=== PATIENT | male | born 1960 | race Caucasian/White ===

== ENCOUNTER → 2017-06-12 | Outpatient (CLI) | payer BC ==
--- NOTE | 2017-06-12 14:07 | RAD ---
MR of the left knee Indication: Chronic knee pain. Pain mostly medial. Technique: The standard multiplanar sequences are obtained. Findings: Medial meniscus:Intact. Lateral meniscus: Intact. Anterior cruciate ligament: Intact Posterior cruciate ligament: Intact Medial collateral ligament: Intact. Iliotibial band: Intact. Posterolateral structures: Mild thickening of the popliteus tendon at its attachment compatible with scarring or degeneration. Mild thickening of the proximal fibular collateral ligament also compatible with degeneration or scarring. No acute tear. Extensor mechanism: Intact. Fluid: Small joint effusion. Articular cartilage -patellofemoral joint:Intact -medial compartment: Severe chondromalacia, with subchondral exposure and small subchondral cysts. -lateral compartment:Intact Bones: Small subchondral cyst at the lateral femoral condyle. No aggressive bone destruction or acute fracture. Soft tissue: Trace Givens's cyst. Mild lateral patellar tilt and subluxation. Impression: 1. Severe primary osteoarthritis at the medial joint compartment. 2. No evidence of meniscal tear. 3. Chronic appearing scarring or degeneration at the attachment of the popliteus tendon and fibular collateral ligament to the femur. Electronically signed by: Ryan Lin MD (06/12/2017 2:03 PM) [id number]
== END | disposition home or self-care (01) ==
LOC: MRI 12:09
PROVIDERS: ATTEND Family Medicine
DX: M17.12 Unilateral primary osteoarthritis, left knee (principal); M71.22 Synovial cyst of popliteal space [Baker], left knee; M25.462 Effusion, left knee; G89.29 Other chronic pain; M94.262 Chondromalacia, left knee
CPT/HCPCS: 73721

== ENCOUNTER → 2020-12-09 | Outpatient (CLI) | payer OTHER ==
--- NOTE | 2020-12-09 17:22 | RAD ---
PROCEDURE: XR HAND_LEFT 2 VIEWS, XR KNEE_LT 1-2 VIEWS, XR LUMBAR SPINE 2-3V STUDY DATE: 12/09/2020 CLINICAL INDICATION / HISTORY: Reason: LEFT HAND PAIN / Spl. Instructions: / History: . TECHNIQUE: PA, lateral and oblique views of the left hand. COMPARISON: None FINDINGS: No fracture or dislocation is identified. The bone density is normal. The joint spaces are maintained, and there are no erosions to suggest an inflammatory arthropathy. The soft tissues are un remarkable. IMPRESSION: No acute osseous abnormality. PROCEDURE: XR HAND_LEFT 2 VIEWS, XR KNEE_LT 1-2 VIEWS, XR LUMBAR SPINE 2-3V STUDY DATE: 12/09/2020 CLINICAL INDICATION / HISTORY: Reason: LEFT knee PAIN / Spl. Instructions: / History: . TECHNIQUE: AP, lateral, views of the left knee. COMPARISON: None FINDINGS: The osseous structures are intact. The articular surfaces are smooth. There is mild joint space narrowing in the medial and lateral compartments with subtle early chondrocalcinosis noted in the medial and lateral menisci. No intra-articular loose bodies. The alignment is within normal pacheco its. The soft tissues are unremarkable. No obvious joint effusion. No radio-opaque foreign bodies are identified. IMPRESSION: Mild early degenerative changes in the medial and lateral compartments of the left knee. No fracture or malalignment. Lumbar spine 2 views INDICATION: Low back pain COMPARISON: None FINDINGS: AP and lateral views of the lumbar spine show 5 lumbar type vertebrae with mild straightening of norm al lumbar lordosis and subtle retrolisthesis of L3 on L4. L3 shows increased density relative to the rest of the vertebral bodies. There are surgical changes from an interbody graft at L5-S1 with slight anterior protrusion of the graft with good coverage with bone graft material. Pedicle screw construct posterior fusion of the lumbar spine is seen with hardware intact. IMPRESSION: Postop hardware fusion changes at the lumbosacral junction and mild diffuse sclerosis at L3 that is n onspecific. This has an appearance resembling Paget's disease of bone. This can be further evaluated with MRI or CT. Electronically signed by: Carlos Coon MD (12/09/2020 5:20 PM) [id number]
== END ==
LOC: RAD 10:33
PROVIDERS: ATTEND Family Medicine
DX: M17.12 Unilateral primary osteoarthritis, left knee (principal); M54.5 Low back pain; M79.641 Pain in right hand
CPT/HCPCS: 72100; 73120; 73560